=== PATIENT | female | born 1970 | race Asian ===

== ENCOUNTER 2022-07-16 15:22 | Outpatient (CLI) | payer BC | END 2022-07-16 15:23 | disposition home or self-care (01) | LOC: CSHMAMMO 15:22 | PROVIDERS: ATTEND Obstetrics & Gynecology | DX: Z12.31 Encounter for screening mammogram for malignant neoplasm of breast (principal); N64.89 Other specified disorders of breast; Z85.3 Personal history of malignant neoplasm of breast | CPT/HCPCS: 77063; 77067 ==